=== PATIENT | female | born 1965 | race Caucasian/White ===

== ENCOUNTER → 2022-01-08 10:21 | Outpatient (CLI) | payer OTHER, SELFPAY ==
--- NOTE | 2022-01-08 10:23 | DI.RAD.S_ITS ---
PROCEDURE: XR HAND LT MIN 3V INDICATIONS: chronic left thumb pain TECHNIQUE: 3 views of the hand(s) acquired. COMPARISON: None. FINDINGS: Bones: No fractures or dislocations. Carpal bones are normally aligned. No suspicious bony lesions. Mild periarticular osteophyte formation at the 1st carpometacarpal joint. Soft tissues: No suspicious soft tissue calcifications. IMPRESSION: Osteoarthritis. No acute fracture. No osseous lesion. If symptoms and/or clinical suspicion for pathology persist, further assessment with repeat, or advanced imaging (e.g., CT, MRI, or bone scan) may be helpful for further assessment. Dictated by: Valerie Boswell M.D. on 01/08/2022 at 10:47 Approved by: Valerie Boswell M.D. on 01/08/2022 at 10:48
--- NOTE | 2022-01-08 10:23 | DI.RAD.S_ITS ---
PROCEDURE: XR LUMBAR SPINE 2-3V INDICATIONS: chronic low back pain with radiculopathy on left TECHNIQUE: 3 views of the lumbar spine were acquired. COMPARISON: None. FINDINGS: Mild dextroscoliosis centered at L3. Straightening of the usual lumbar lordosis. No listhesis. Vertebral body heights maintained. No suspicious lytic or blastic osseous lesion. From L2-L3 through L5-S1, disc height loss, degenerative endplate change, and facet hypertrophy are present. Findings most pronounced from L3-L4 through L5-S1 where there is mild to moderate osseous neural foraminal narrowing, at least. IMPRESSION: Degenerative changes in the lower lumbar spine with at least moderate neural foraminal stenosis suspected from L3-L4 through L5-S1. MRI recommended. Dictated by: Jaya Krueger M.D. on 01/08/2022 at 12:15 Approved by: Jaya Krueger M.D. on 01/08/2022 at 12:16
== END ==
PROVIDERS: PCP Family Medicine; Referring Provider Family Medicine; Visit Provider Family Medicine
DX: M47.26 Other spondylosis with radiculopathy, lumbar region (principal); M47.27 Other spondylosis with radiculopathy, lumbosacral region; M48.07 Spinal stenosis, lumbosacral region; M48.061 Spinal stenosis, lumbar region without neurogenic claudication; M19.042 Primary osteoarthritis, left hand; M79.645 Pain in left finger(s); G89.29 Other chronic pain
CPT/HCPCS: 72110; 73130

== ENCOUNTER → 2022-08-26 10:17 | Outpatient (CLI) | payer OTHER, SELFPAY ==
[2022-08-28 04:36] LABS: Hepatitis B Surf Ab Qualitativ Non Reactive (.)
[2022-08-28 11:04] LABS: Var-Zoster Immunity Screen 3182 index (Immune >165)
[2022-08-28 13:52] LABS: QuantiFERON Mitogen Value >10.00 IU/mL (.); QuantiFERON Nil Value 0.26 IU/mL (.); QuantiFERON TB Gold Plus Negative (Negative); QuantiFERON TB1 Ag Value 0.31 IU/mL (.); QuantiFERON TB2 Ag Value 0.37 IU/mL (.)
== END ==
PROVIDERS: PCP Family Medicine; Referring Provider Family Medicine; Visit Provider Family Medicine
DX: R76.0 Raised antibody titer (principal); Z11.1 Encounter for screening for respiratory tuberculosis; Z11.59 Encounter for screening for other viral diseases
CPT/HCPCS: 36415; 86480; 86706; 86787

== ENCOUNTER 2023-03-25 08:55 | Day surgery (SDC) | payer OTHER, SELFPAY ==
--- NOTE | 2023-03-25 | PATH_ITS ---
[facility] Accession Number: [id number] No. of containers..01 Tissue . 01 Material submitted: . sigmoid colon - SIGMOID COLON POLYP . 01 Diagnosis: Sigmoid Colon, Polypectomy: Hyperplastic polyp. MRV 03/31/2023 1437 Local . 01 Electronically signed: . Gloria Walker MD, Pathologist NPI- [id number] . 01 Gross description: . SIGMOID COLON POLYP: Received in formalin are 3 fragment(s) of thompson, soft tissue measuring 0.1 x 0.1 x 0.1 cm to 0.3 x 0.1 x 0.1 cm submitted entirely in 1 cassette(s) /CHARLES 03/26/2023 2303 Local . 01 Pathologist provided ICD-10: K63.5 . 01 CPT . 355586 Specimen Comment: A courtesy copy of this report has been sent to [phone] Performed at: 01 [facility] [address] [place] [address], [place], [place] [id number] MD Madan Castillo MD Phone: [phone]
[2023-03-25 09:10] VITALS: BMI 28.1
[2023-03-25 09:15] VITALS: BP 140/84; PULSE 104; RESP 16; TEMP 36.5; O2SAT 97
[2023-03-25] MEDS: LACTATED RINGERS 1,000 ML 200 ML IV (09:28)
--- NOTE | 2023-03-25 10:11 | PM.HP.1 ---
History of Present Illness History of Present Illness Date Patient Seen: 03/25/23 Time Patient Seen: 10:12 Chief complaint: [facility] Narrative: 57-year-old woman here for screening colonoscopy. Previous colonoscopy 2018 significant for benign polyp. No family history of intestinal malignancy. No abdominal pain nausea vomiting blood rectum unintentional weight loss. [facility] Medical History (Updated 01/08/22 @ 10:21 by Cesar Silveira MD) Chronic low back pain with left-sided sciatica Hyperlipidemia Left hip pain Pain of left thumb Social History household members: spouse Smoking Status: Never smoker alcohol intake: current Meds Home Medications and Allergies Allergies Allergy/AdvReac Type Severity Reaction Status Date / Time No Known Drug Allergies Allergy Verified 03/25/23 09:05 Exam Vital Signs (past 8 hours): - 03/25/23 09:15 Temperature 97.7 F Pulse Rate 104 H Respiratory Rate 16 Blood Pressure 140/84 Pulse Oximetry 97 Oxygen Delivery Method Room Air Oxygen Delivery Method Room Air Narrative Exam Narrative: General adult alert oriented no acute distress Extremities warm well perfused Assessment & Plan Assessment & Plan narrative: The patient requires colorectal screening and colonoscopy is recommended. Technical details were discussed. Risks, benefits, alternatives explained. Risks including but not limited to myocardial infarction, aspiration, bleeding, pain, missed lesion, incomplete examination, need for further radiographic studies, colonic perforation, and need for major abdominal surgery were discussed. All questions were answered to their satisfaction, and they are in agreement with this plan.
[2023-03-25 10:46] VITALS: BP 104/59; PULSE 67; RESP 12; TEMP 36.4; O2SAT 97
[2023-03-25 10:50] VITALS: BP 101/61; PULSE 63; RESP 16; O2SAT 97
--- NOTE | 2023-03-25 10:52 | PM.OP.COLON ---
Operative Date/Time/Diagnoses Date of procedure: 03/25/23 Time of procedure: 10:52 Pre-op diagnosis: Personal history of colonic polyps Post-op diagnosis: other (Colonic polyp x1) Procedure & Clinicians Study performed: Colonoscopy and polypectomy Same procedure as scheduled: Yes Indications: 57-year-old woman personal history of colonic polyps here for screening colonoscopy. Surgeon: Aj Diaz Procedure Notes Procedure in detail: The history and physical was performed/updated and the patient is ASA class is 2. The procedure was discussed in detail with the patient. Potential risks complications including infection, bleeding, missed diagnosis, perforation, need for surgery, and were explained. Their questions were answered and informed consent was obtained. Patient was brought to the procedure room and placed standard monitoring equipment. The patient's vital signs were monitored continuously throughout the entire procedure. Prior to starting time-out was performed. The patient was placed in the left lateral recumbent position. Procedural sedation was administered by anesthesia. Examination began with a thorough inspection of the perianal area there was no evidence of fissures, fistulae, external hemorrhoids or cutaneous malignancy. The colonoscopy scope was then placed into the anal canal and was advanced to the cecum, which was identified by the ileocecal valve, the appendiceal orifice and the confluence of the taenia. The scope was then slowly withdrawn examining colon thoroughly in all directions, irrigating it of any residual stool. Within the sigmoid colon there was a 3-5 mm polyp which was removed with biopsy forceps its entirety. Remainder of the colon was unremarkable. The patient tolerated the procedure well. They will be discharged once criteria are met. The prep was of good/excellent quality. The withdrawl time was 7 minutes. Specimen(s): other (Sigmoid colon polyp) Impression: Colonic polyp x1 Post-procedure Recommendations: High fiber diet Plan for aftercare: Follow-up is dependent on pathology findings Disposition: same day surgery
[2023-03-25 10:58] VITALS: BP 118/61; PULSE 77; RESP 14; TEMP 36.2; O2SAT 96
[2023-03-25 11:02] VITALS: BP 106/63; PULSE 69; RESP 16; O2SAT 96
== END 2023-03-25 11:19 | disposition home or self-care (01) ==
PROVIDERS: PCP Family Medicine; Referring Provider Surgery; Visit Provider Surgery
PROC: 0DJD8ZZ Inspection of Lower Intestinal Tract, Via Natural or Artificial Opening Endoscopic (ICD-10-PCS; CPT 45378; principal; 2023-03-25 10:00)
DX: Z12.11 Encounter for screening for malignant neoplasm of colon (principal); Z86.010 Personal history of colon polyps; K63.5 Polyp of colon
CPT/HCPCS: 45390

== ENCOUNTER → 2024-05-04 09:31 | Outpatient (CLI) | payer OTHER, SELFPAY ==
[2024-05-04 10:33] LABS: Add Manual Diff / Slide Review NO; Basophils Absolute Auto 0 /uL (0-100); Basophils Percent Auto 0.5 % (0-2); Eosinophils Absolute Auto 100 /uL (0-450); Eosinophils Percent Auto 2.2 % (2-4); Hematocrit 38.9 % (36-46); Hemoglobin 13.4 g/dL (12.0-16.0); Lymphocytes Absolute Auto 1300 /uL (1100-4500); Lymphocytes Percent Auto 27.4 % (25-40); Mean Corpuscular HGB Conc 34.6 % (30-36); Mean Corpuscular Hemoglobin 32.7 PG (26-34); Mean Corpuscular Volume 94.7 fL (80-100); Monocytes Absolute Auto 400 /uL (0-900); Monocytes Percent Auto 7.6 % (3-14); Neutrophils Absolute Auto 3000 /uL (1500-7000); Neutrophils Percent Auto 62.3 % (50-75); Platelet Count 234 X10^3/uL (150-400); Red Blood Cell Count 4.11 X10^6/uL (4.0-5.2); Red Cell Distribution Width 12.3 % (11.6-14.8); White Blood Cell Count 4.8 X10^3/uL (4.5-11.0)
[2024-05-04 11:11] LABS: Alanine Aminotransferase 29 IU/L (<35); Albumin 4.5 g/dL (3.5-5.0); Albumin Globulin Ratio 1.9 (1.0-2.8); Alkaline Phosphatase 67 U/L (38-126); Aspartate Aminotransferase 33 IU/L (14-36); BUN Creatinine Ratio 15.7 (6-22); Bilirubin Total 0.6 mg/dL (0.2-1.3); Blood Urea Nitrogen 11 mg/dL (7-17); Calcium 9.2 mg/dL (8.4-10.2); Carbon Dioxide 27 mmol/L (22-32); Chloride 104 mmol/L (98-107); Cholesterol 217 mg/dL (140-199); Estimated Glomerular Filt Rate > 60 mL/min (>60); Globulin 2.4 g/dL (1.7-4.1); Glucose 103 mg/dL (70-100); HDL Cholesterol 46 mg/dL (40-60); HEMOLYSIS < 15 (0-50); LDL Cholesterol Calculated 144 mg/dL (<100); Potassium 4.3 mmol/L (3.4-5.1); Sodium 138 mmol/L (137-145); Total Protein 6.9 g/dL (6.3-8.2); Triglycerides 135 mg/dL (35-150)
[2024-05-04 11:37] LABS: TSH w/ Reflex to FT4 1.26 uIU/mL (0.47-4.68)
[2024-05-04 11:58] LABS: Hep C Virus Ab w/Reflex Quant NEGATIVE s/c (NEGATIVE)
[2024-05-05 09:16] LABS: Apolipoprotein B 110 mg/dL (<90)
== END ==
PROVIDERS: PCP Family Medicine; Referring Provider Family Medicine; Visit Provider Family Medicine
DX: M17.12 Unilateral primary osteoarthritis, left knee (principal); E78.5 Hyperlipidemia, unspecified; M54.42 Lumbago with sciatica, left side; G89.29 Other chronic pain
CPT/HCPCS: 36415; 80053; 80061; 82172; 84443; 85025; 86803

== ENCOUNTER → 2024-07-19 09:21 | Outpatient (CLI) | payer OTHER, SELFPAY ==
--- NOTE | 2024-07-19 09:22 | DI.US.S_ITS ---
PROCEDURE: US PELVIC COMPLETE INDICATIONS: Recent post menopasual bleeding - check endometrial lining TECHNIQUE: Real-time scanning was performed of the pelvic organs, with image documentation. Additional endovaginal scanning was necessary due to incomplete visualization of the adnexal and endometrial structures by transabdominal scanning. COMPARISON: None. FINDINGS: Uterus: Uterus is retroverted and normal in size at 6.9 x 4.7 x 3.0 cm. The myometrium is homogeneous. The endometrium measures 16 mm combined thickness. Endometrial hypervascularity Ovaries: The right ovary measures 2.6 x 1.4 x 1.0 cm, with a calculated ovarian volume of 1.9 cc. The left ovary measures 2.4 x 1.3 x 1.5 cm, with a calculated ovarian volume of 2.4 cc. The ovaries have a normal sonographic appearance. Less than 12 follicles can be seen in each ovary. No adnexal masses are seen. Other: No pathologic free abdominal or pelvic fluid. IMPRESSION: Postmenopausal endometrial thickening with hypervascularity. Advise endometrial biopsy Approved by: Joao Pop M.D. on 07/19/2024 at 17:05
== END ==
PROVIDERS: PCP Family Medicine; Referring Provider Physician Assistant; Visit Provider Physician Assistant
DX: N95.0 Postmenopausal bleeding (principal); R93.89 Abnormal findings on diagnostic imaging of other specified body structures
CPT/HCPCS: 76830; 76856

== ENCOUNTER → 2024-08-27 09:15 | Outpatient (CLI) | payer OTHER, SELFPAY ==
--- NOTE | 2024-08-27 09:17 | DI.CT.S_ITS ---
PROCEDURE: CT CHEST ABD PEL W CON INDICATIONS: STAGING FOR HIGH GRADE ENDOMETRIAL CANCER TECHNIQUE: After the administration of intravenous contrast, 5 mm thick sections acquired from the lung apices to the symphysis. 5 mm coronal and sagittal reformats were performed, with additional 7 mm MIP reformats through the lungs. For radiation dose reduction, the following was used: automated exposure control, adjustment of mA and/or kV according to patient size. COMPARISON: [facility], , PELVIC COMPLETE, 07/19/2024, 9:49. FINDINGS: Image quality: Excellent. CHEST: Lower Neck: No enlarged lymph nodes. Thyroid: No thyroid nodules which require sonographic follow up, per consensus guidelines. Axillae: No enlarged lymph nodes. Chest Wall: Unremarkable. Lungs and Pleura: No pneumothorax or pleural effusions. No consolidation or suspicious nodules. Heart: Heart size is normal. No pericardial effusion. Thoracic Vessels: The aorta and pulmonary arteries demonstrate normal size. Mediastinum and Dejah: No enlarged lymph nodes. Esophagus: No wall thickening. No hiatal hernia. ABDOMEN: Liver: No solid mass. Gallbladder: No radiopaque gallstones or wall thickening. Biliary ducts: No biliary dilation. Pancreas: No ductal dilation. Spleen: Size is within normal limits. Adrenal Glands: No adrenal nodules. Kidneys and Ureters: No hydronephrosis. No solid mass. No complex renal cystic lesion which requires follow up. Stomach and Bowel: Normal colonic caliber, without significant wall thickening. Colonic diverticulosis without evidence of diverticulitis. Peritoneum: No abnormal intraperitoneal fluid. No free air. Ventral Wall: No significant ventral hernia. Abdominal Nodes: No retroperitoneal or mesenteric adenopathy by size criteria. Nonenlarged retroperitoneal lymph nodes are present, largest measuring 6 millimeter short axis in the upper periaortic station (series 2, image 119). Vessels: Aorta and inferior vena cava are normal in size. PELVIS: Pelvic Organs: Thickening of the endometrium. Smooth contour of the myometrium. Bladder: No bladder wall thickening, accounting for underdistention. Pelvic Nodes: No enlarged lymph nodes. Miscellaneous: No inguinal hernias are seen. Bones: No aggressive osseous abnormality. IMPRESSION: Thickening of the endometrium, with smooth contour of the myometrium. No pelvic or retroperitoneal adenopathy by size criteria. No evidence of metastatic disease elsewhere. Dictated by: Peyman Bergeron M.D. on 08/27/2024 at 12:26 Approved by: Peyman Bergeron M.D. on 08/27/2024 at 12:35
[2024-08-27 12:33] LABS: Hemoglobin 13.3 g/dL (12.0-16.0); Mean Corpuscular HGB Conc 34.2 % (30-36); Mean Corpuscular Hemoglobin 32.3 PG (26-34); Mean Corpuscular Volume 94.5 fL (80-100); Platelet Count 250 X10^3/uL (150-400); Red Blood Cell Count 4.13 X10^6/uL (4.0-5.2); Red Cell Distribution Width 12.4 % (11.6-14.8); White Blood Cell Count 6.4 X10^3/uL (4.5-11.0)
[2024-08-27 12:52] LABS: BUN Creatinine Ratio 18.8 (6-22); Blood Urea Nitrogen 13 mg/dL (7-17); Calcium 9.6 mg/dL (8.4-10.2); Carbon Dioxide 25 mmol/L (22-32); Chloride 102 mmol/L (98-107); Estimated Glomerular Filt Rate > 60 mL/min (>60); Glucose 104 mg/dL (70-100); HEMOLYSIS < 15 (0-50); Potassium 4.2 mmol/L (3.4-5.1); Sodium 137 mmol/L (137-145)
[2024-08-27 13:21] LABS: Cancer Antigen 125 < 5.5 U/mL (0-35)
== END ==
PROVIDERS: PCP Family Medicine; Referring Provider Obstetrics & Gynecology; Visit Provider Obstetrics & Gynecology
DX: C54.1 Malignant neoplasm of endometrium (principal)
CPT/HCPCS: 36415; 71260; 74177; 80048; 85027; 86304

== ENCOUNTER → 2025-05-12 10:28 | Outpatient (CLI) | payer OTHER, SELFPAY ==
[2025-05-12 11:00] LABS: Add Manual Diff / Slide Review NO; Hematocrit 32.7 % (36-46); Hemoglobin 11.5 g/dL (12.0-16.0); Lymphocytes Absolute Auto 800 /uL (1100-4500); Mean Corpuscular HGB Conc 35.3 % (30-36); Mean Corpuscular Hemoglobin 35.8 PG (26-34); Mean Corpuscular Volume 101.6 fL (80-100); Platelet Count 186 X10^3/uL (150-400)
[2025-05-12 11:22] LABS: Alanine Aminotransferase 28 IU/L (<35); Albumin 4.7 g/dL (3.5-5.0); Albumin Globulin Ratio 1.7 (1.0-2.8); Alkaline Phosphatase 55 U/L (38-126); Blood Urea Nitrogen 17 mg/dL (7-17); Calcium 9.7 mg/dL (8.4-10.2); Carbon Dioxide 28 mmol/L (22-32); Chloride 103 mmol/L (98-107); Cholesterol 188 mg/dL (140-199); Estimated Glomerular Filt Rate > 60 mL/min (>60); Globulin 2.8 g/dL (1.7-4.1); Glucose 99 mg/dL (70-99); HDL Cholesterol 40 mg/dL (40-60); HEMOLYSIS < 15 (0-50); Potassium 3.9 mmol/L (3.4-5.1); Sodium 140 mmol/L (137-145); Total Protein 7.5 g/dL (6.3-8.2); Triglycerides 126 mg/dL (35-150)
[2025-05-12 11:54] LABS: TSH w/ Reflex to FT4 1.24 uIU/mL (0.47-4.68)
== END ==
PROVIDERS: PCP Family Medicine; Referring Provider Family Medicine; Visit Provider Family Medicine
DX: Z00.00 Encounter for general adult medical examination without abnormal findings (principal); E78.5 Hyperlipidemia, unspecified; M17.12 Unilateral primary osteoarthritis, left knee; M54.42 Lumbago with sciatica, left side; G89.29 Other chronic pain
CPT/HCPCS: 36415; 80053; 80061; 82043; 82570; 84443; 85025